=== PATIENT | male | born 1960 | race Caucasian/White ===

== ENCOUNTER 2018-06-13 15:46 | Inpatient (IN) | payer OTHER ==
[~2018-06-13] VITALS: Ht 175.3 cm; Wt 88.2 kg
--- NOTE | 2018-06-13 16:22 | ERD ---
ER Documentation Chief Complaint Chief Complaint gen weakness with high blood sugar 488. no trauma. recent meth use. HPI 57-year-old male presenting with generalized weakness. He was noted to have a blood sugar of 488 in the ambulance prior to arrival. Patient states that he has not been taking his medications for several days. Today when he was trying to get out of bed, he did fall but denies loss of consciousness or head injury. He is denying any focal weakness or numbness. He did use methamphetamines today. ROS All systems reviewed and are negative except as per history of present illness. 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) Hx Cardiac Disorders: Yes (Hypertension) Hx Miscellaneous Medical Probl: Yes (Diabetes) Hx Alcohol Use: No Hx Substance Use: Yes FmHx Family History: No diabetes Physical Exam Vitals Vital Signs Date Temp Pulse Resp B/P (MAP) Pulse Ox O2 O2 Flow FiO2 Time Delivery Rate 06/13/18 109 15 150/90 97 Room Air 18:53 (110) 06/13/18 112 18 170/111 98 Room Air 18:00 (130) 06/13/18 105 18 192/122 98 Room Air 17:30 (145) 06/13/18 100 18 199/125 98 Room Air 16:40 (149) 06/13/18 97.5 97 18 194/128 97 16:00 (150) Physical Exam Const: No acute distress Head: Atraumatic Eyes: Normal Conjunctiva ENT: dry oral mucosa.Normal External Ears, Nose and Mouth. Neck: Full range of motion. No meningismus. Resp: Clear to auscultation bilaterally Cardio: Regular rate and rhythm, no murmurs Abd: Soft, non tender, non distended. Normal bowel sounds Skin: No petechiae or rashes Back: No midline or flank tenderness Ext: Right lower extremity prosthesis with BKA. Left lower extremity without edema. Neur: Awake and alert, oriented, normal speech, no facial asymmetry, strength and sensations intact. Psych: Normal Mood and Affect Result Diagram: 06/13/18 1616 06/13/18 1616 Results 24 hrs Laboratory Tests Test 06/13/18 16:16 06/13/18 17:07 White Blood Count 4.9 10^3/ul Red Blood Count 4.15 10^6/ul Hemoglobin 12.2 g/dl Hematocrit 35.9 % Mean Corpuscular Volume 86.5 fl Mean Corpuscular Hemoglobin 29.4 pg Mean Corpuscular Hemoglobin Concent 34.0 g/dl Red Cell Distribution Width 12.6 % Platelet Count 362 10^3/UL Mean Platelet Volume 10.0 fl Immature Granulocytes % 0.200 % Neutrophils % 67.3 % Lymphocytes % 21.4 % Monocytes % 8.4 % Eosinophils % 1.9 % Basophils % 0.8 % Nucleated Red Blood Cells % 0.0 /100WBC Immature Granulocytes # 0.010 10^3/ul Neutrophils # 3.3 10^3/ul Lymphocytes # 1.0 10^3/ul Monocytes # 0.4 10^3/ul Eosinophils # 0.1 10^3/ul Basophils # 0.0 10^3/ul Nucleated Red Blood Cells # 0.0 10^3/ul Sodium Level 137 mmol/L Potassium Level 4.1 mmol/L Chloride Level 105 mmol/L Carbon Dioxide Level 27 mmol/L Anion Gap 5 Blood Urea Nitrogen 21 mg/dl Creatinine 1.43 mg/dl Est Glomerular Filtrat Rate mL/min 51 mL/min Glucose Level 379 mg/dl Calcium Level 8.8 mg/dl Total Bilirubin 0.3 mg/dl Direct Bilirubin 0.00 mg/dl Indirect Bilirubin 0.3 mg/dl Aspartate Amino Transf (AST/SGOT) 25 IU/L Alanine Aminotransferase (ALT/SGPT) 20 IU/L Alkaline Phosphatase 119 IU/L Troponin I 0.021 ng/ml Total Protein 6.0 g/dl Albumin 2.6 g/dl Globulin 3.40 g/dl Albumin/Globulin Ratio 0.76 Urine Color STRAW Urine Clarity CLEAR Urine pH 7.0 Urine Specific Lester 1.017 Urine Ketones NEGATIVE mg/dL Urine Nitrite NEGATIVE mg/dL Urine Bilirubin NEGATIVE mg/dL Urine Urobilinogen NEGATIVE mg/dL Urine Leukocyte Esterase NEGATIVE Janiya/ul Urine Microscopic RBC 3 /HPF Urine Microscopic WBC 1 /HPF Urine Bacteria FEW /HPF Urine Hemoglobin NEGATIVE mg/dL Urine Glucose 3+ mg/dL Urine Total Protein 3+ mg/dl Urine Opiates Screen Negative Urine Barbiturates Negative Urine Amphetamines Screen POSITIVE Urine Benzodiazepines Screen Negative Urine Cocaine Screen Negative Urine Cannabinoids Positive Current Medications Medications Dose Sig/Norbert Start Time Status Last (Trade) Ordered Route PRN Stop Time Admin Dose Reason Admin Sodium 1,000 ml @ Q1H STAT 06/13/18 DC 06/13/18 Chloride 1,000 mls/hr IV 16:54 16:59 06/13/18 17:53 Nicardipine 30 mg ONCE ONCE 06/13/18 DC 06/13/18 HCl PO 17:00 16:59 (Cardene) 06/13/18 17:01 Hydralazine 10 mg ONCE ONCE 06/13/18 DC 06/13/18 HCl IV 18:00 17:53 (Apresoline) 06/13/18 18:01 Ondansetron 4 mg ER BRIDGE 06/13/18 HCl (Zofran PRN IV 19:00 06/14/18 Inj) NAUSEA/VOMITI 18:59 NG 650 mg ER BRIDGE 06/13/18 Acetaminophen PRN PO 19:00 06/14/18 (Tylenol .MILD PAIN 18:59 Tab) 1-3 OR TEMP Insulin 5 unit ONCE ONCE 06/13/18 DC Aspart SC 19:00 (Novolog 06/13/18 19:01 Insulin Pen) Procedures/MDM EMERGENT LABS AND DIAGNOSTIC STUDIES: Lab Results above were reviewed and interpreted by me. CBC: no anemia or evidence of infection CMP: Elevated BUN and creatinine, consistent with renal failure of unknown chronicity. Hyperglycemic without evidence of acidosis. No evidence of electrolyte abnormality Troponin within normal limits, not indicative of cardiac ischemia UA: no evidence of infection Urine drug screen positive for cannabinoids and amphetamines 12-lead EKG was interpreted by Kuldip Pinzon MD: Normal Sinus Rhythm with ventricular rate of 97 beats per minute Rightward axis Normal intervals No acute ST or T wave changes suggestive of acute ischemia or STEMI. Radiology Results as interpreted by Radiology below were reviewed by Marisa Pinzon MD: Chest x-ray: No acute abnormalities Initial Nursing notes reviewed. Previous Medical Records requested via the Electronic Health Record. EMERGENCY DEPARTMENT COURSE / MEDICAL DECISION MAKING: Patient is presenting with generalized weakness after a fall. No focal deficits on exam. He is mentating normally. Vitals were notable for significantly elevated blood pressure. He was also hyperglycemic without evidence of acidosis. Oral Cardene was given without improvement of his hypertension. He was treated with hydralazine 10 mg IV. Labs were notable for evidence of renal failure of unknown chronicity. With this finding, patient may have hypertensive emergency and will require admission for stabilization. He was also given insulin for his hyperglycemia as well as IV fluids. Critical Care Time: 35 minutes Treatments/Evaluations: Close monitoring and treatment of unstable vital signs, cardiorespiratory, and neurologic status, while maintaining tight balance of fluid, respiratory, and cardiac interventions. This time includes discussing the case with the patient and the patients family. This time does not include all procedures stated elsewhere in this record. This time also includes reviewing old records, labs and radiological studies. This time includes examining and re- examining the patient. Additionally, this time also includes arranging care with admitting and consulting physicians. Accepting Care Team: Current data and ongoing care discussed. Time: Time of admission Primary Provider: Dr. Chani Rojas Diagnosis: Primary Impression: Hypertensive emergency Additional Impressions: Renal failure Renal failure chronicity: unspecified chronicity Qualified Codes: N19 - Unspecified kidney failure Uncontrolled diabetes mellitus Diabetes mellitus type: type 2 Glycemic state: with hyperglycemia Qualified Codes: E11.65 - Type 2 diabetes mellitus with hyperglycemia Condition: Serious SVETA PINZON MD Jun 13, 2018 16:22
[2018-06-13] MEDS ORDERED: MTF1000T PO (16:45)
[2018-06-13] MEDS ORDERED: GLIP5TAB13 PO (16:46)
[2018-06-13] MEDS ORDERED: NOVO7030 SC (16:47)
[2018-06-13] MEDS ORDERED: ATOR20TA38 PO (16:47)
[2018-06-13] MEDS ORDERED: SOD CHLORIDE 0.9% 1,000 ML IV STA (16:54)
[2018-06-13] MEDS ORDERED: NICARDipine HCL 30 MG CAPSULE PO ONE (17:00)
[2018-06-13] MEDS ORDERED: hydrALAzine 20 MG INJ IV ONE (18:00)
[2018-06-13] MEDS ORDERED: ACETAMINOPHEN 325 MG TAB PO PRN ×2 (19:00→20:00)
[2018-06-13] MEDS ORDERED: INSULIN ASPART [NOVOLOG] 3 ML PEN SC ONE (19:00)
[2018-06-13] MEDS ORDERED: ONDANSETRON 4 MG INJ IV PRN (19:00)
[2018-06-13] MEDS ORDERED: ONDANSETRON 4 MG TAB PO PRN (20:00)
[2018-06-13] MEDS ORDERED: CEFTRIAXONE 1 GM/50 ML (PMX) 50 ML IVPB ONE (20:00)
[2018-06-13] MEDS ORDERED: SOD CHLORIDE 0.9% 1,000 ML IV SCH (20:30)
[2018-06-13 21:22] VITALS: PULSE 109
[2018-06-13 21:45] VITALS: Ht 175.3 cm; Wt 88.2 kg
[2018-06-13] MEDS: METOPROLOL 25 MG TAB PO SCH (22:54)
--- NOTE | 2018-06-13 23:19 | HP ---
Date/Time of Note Date/Time of Note DATE: 06/13/18 TIME: 23:19 Assessment/Plan VTE Prophylaxis Pharmacological prophylaxis: heparin Lines/Catheters IV Catheter Type (from Nrsg): Saline Lock Assessment/Plan Assessment/Plan 1. Rule out CVA -will obtain head CT, MRI of the brain, carotid Doppler ultrasound and 2D echo -Aspirin and statin -Check A1c, fasting lipid and TSH in a.m. -PT eval -Frequent neuro checks -Noted that patient symptom could be from hypertensive crisis 2. Hypertensive emergency -Adjust BP meds as needed 3. Insulin-dependent diabetes with hyperglycemia: Insulin while in-house 4. Presumed LELAND vs CKD from hypertensive nephrosclerosis and diabetes -We will hydrate for now -We will decide about renal ultrasound and nephrology consult in a.m. 5. History of right BKA: Supportive care Result Diagram: 06/13/18 1616 06/13/18 1616 Results 24hrs Laboratory Tests Test 06/13/18 16:16 06/13/18 17:07 06/13/18 19:36 06/13/18 20:00 White Blood Count 4.9 Red Blood Count 4.15 L Hemoglobin 12.2 L Hematocrit 35.9 L Mean Corpuscular 86.5 Volume Mean Corpuscular 29.4 Hemoglobin Mean Corpuscular 34.0 Hemoglobin Concent Red Cell 12.6 Distribution Width Platelet Count 362 Mean Platelet Volume 10.0 Immature 0.200 Granulocytes % Neutrophils % 67.3 Lymphocytes % 21.4 Monocytes % 8.4 Eosinophils % 1.9 Basophils % 0.8 Nucleated Red Blood 0.0 Cells % Immature 0.010 Granulocytes # Neutrophils # 3.3 Lymphocytes # 1.0 Monocytes # 0.4 Eosinophils # 0.1 Basophils # 0.0 Nucleated Red Blood 0.0 Cells # Sodium Level 137 Potassium Level 4.1 Chloride Level 105 Carbon Dioxide Level 27 Anion Gap 5 Blood Urea Nitrogen 21 H Creatinine 1.43 H Est Glomerular 51 L Filtrat Rate mL/min Glucose Level 379 H Calcium Level 8.8 Total Bilirubin 0.3 Direct Bilirubin 0.00 Indirect Bilirubin 0.3 Aspartate Amino 25 Transf (AST/SGOT) Alanine 20 Aminotransferase (AL T/SGPT) Alkaline Phosphatase 119 Troponin I 0.021 Total Protein 6.0 L Albumin 2.6 L Globulin 3.40 H Albumin/Globulin 0.76 Ratio Urine Color STRAW Urine Clarity CLEAR Urine pH 7.0 Urine Specific 1.017 [place] Switch Urine Ketones NEGATIVE Urine Nitrite NEGATIVE Urine Bilirubin NEGATIVE Urine Urobilinogen NEGATIVE Urine Leukocyte NEGATIVE Esterase Urine Microscopic 3 RBC Urine Microscopic 1 WBC Urine Bacteria FEW A Urine Hemoglobin NEGATIVE Urine Glucose 3+ H Urine Total Protein 3+ H Urine Opiates Screen Negative Urine Barbiturates Negative Urine Amphetamines POSITIVE Screen Urine Negative Benzodiazepines Screen Urine Cocaine Screen Negative Urine Cannabinoids Positive Bedside Glucose 470 *H 397 H HPI/ROS Admit Date/Time Admit Date/Time Jun 13, 2018 at 18:57 Hx of Present Illness This is a 57-year-old male with a history of hypertension, diabetes, methamphetamine use, right BKA who presented to ER complaining of generalized weakness. He fell when attempting to get out of bed. He has minimal facial dr oop, but he is not aware of it. He denied slurred speech, focal weakness or numbness, chest pain, shortness of breath. Last use of meth was yesterday. The patient does not take his medications When he presented to ER, systolic blood pressure almost in the 200s with diastolic in the 120s. Patient has not been taking his medications. Initial blood glucose when EMS arrived was almost 500, on arrival to the ER he was closed with 400. No sign of DKA. PMH/Family/Social Past Medical History Past Surgical History Past Surgical Hx: other (see hpi) Family History Significant Family History: no pertinent family hx Social History Alcohol Use: other Smoking Status: Unknown if ever smoked Drug Use: other Medications Current Medications Ondansetron HCl (Zofran Tab) 4 mg Q6 PRN PO NAUSEA; Start 06/13/18 at 20:00 Acetaminophen (Tylenol Tab) 650 mg Q4 PRN PO ELEVATED TEMPERATURE; Start 06/13/18 at 20:00 Diagnostic Test (Pha) (Accu-Chek) 1 ea 02 XX ; Start 06/14/18 at 02:00 Metoprolol Tartrate (Lopressor) 25 mg BID PO Last administered on 06/13/18at 22:54; Admin Dose 25 MG; Start 06/13/18 at 21:00 Sodium Chloride 1,000 ml @ 125 mls/hr Q8H IV ; Start 06/13/18 at 20:30; Stop 06/14/18 at 12:29 Ceftriaxone Sodium 50 ml @ 100 mls/hr Q24H IVPB ; Start 06/14/18 at 20:00 Coded Allergies: No Known Allergy (Unverified , 06/13/18) Social History Smoking Status: Never smoker Exam/Review of Systems Vital Signs Vitals Vital Signs Date Temp Pulse Resp B/P (MAP) Pulse Ox O2 O2 Flow FiO2 Time Delivery Rate 06/13/18 109 21:22 06/13/18 18 140/101 98 20:40 (114) 06/13/18 Room Air 20:10 06/13/18 97.5 16:00 Exam Constitutional: other (Patient lying in bed. Somewhat sleepy but fully arousable and answering question appropriately although slowly) Head: normocephalic, atraumatic Eyes: PERRL ENMT: other (Slight facial droop noted) Respiratory: other Cardiovascular: regular rate and rhythm (Slightly decreased breath sounds at the bases bilaterally) Gastrointestinal: soft Extremities: normal pulses JESUS KUNZ MD Jun 13, 2018 23:19
[2018-06-13 23:43] VITALS: BP 157/89; PULSE 81; RESP 17
[2018-06-14] VITALS (9 sets, daily range): BP systolic 156–173; BP diastolic 94–109; PULSE 75–95; RESP 18–20
[2018-06-14] MEDS ORDERED: ACCU-CHEK XX SCH (02:00)
[2018-06-14] MEDS ORDERED: INSULIN GLARGINE [LANTus] (100 UNITS/ML) SYG SC ONE (06:00)
[2018-06-14] MEDS: METOPROLOL 25 MG TAB PO SCH (08:18)
--- NOTE | 2018-06-14 08:46 | CONS ---
DATE OF ADMISSION: 06/13/2018 DATE OF CONSULTATION: 06/14/2018 TYPE OF CONSULTATION: Nephrology. REASON FOR CONSULTATION: Acute kidney injury. PHYSICIAN REQUESTING CONSULT: Dr. Kunz. HISTORY OF PRESENT ILLNESS: This is a 57-year-old male with a past medical history of hypertension, diabetes, history of methamphetamine use, history of right BKA, who presents to [facility] Emergency Room with generalized weakness. The patient stated he was trying to get out of the bed when he noted some facial droop and weakness. The patient does admit to using methamphetamine y esterday. The patient was subsequently taken to the Emergency Room where he was noted to have systol ic pressures greater than 200. The patient in the Emergency Room had laboratory data drawn, which sh owed a white count 6.8, BUN 24, creatinine 1.42. The patient had a chest x-ray which showed no acute disease. In the Emergency Room, the patient was given antibiotic therapy and antihypertensive medic ations and admitted to telemetry for evaluation. In terms of patient's renal history, the patient denies any prior history of kidney disease or chroni c kidney disease. Denies any hemoptysis, hematemesis or hematochezia. PAST MEDICAL HISTORY: As above, history of methamphetamine use, history of hypertension, history of diabetes. PAST SURGICAL HISTORY: History of BKA. FAMILY HISTORY: No family history of kidney disease. SOCIAL HISTORY: Does not drink, smoke, history positive for drug use. MEDICATIONS: The patient's medications have been reviewed. REVIEW OF SYSTEMS: A 14-point review of systems conducted. Pertinent positives stated in HPI, other melendrez negative. PHYSICAL EXAMINATION: VITAL SIGNS: Blood pressure is 173/101, respiration 18, pulse 77, temperature 98.7. HEENT: Head is normocephalic. NECK: Supple. HEART: Regular rate. LUNGS: Show diminished breath sounds at the base. ABDOMEN: Soft, nontender to palpation. No rebound, guarding. EXTREMITIES: Negative for clubbing, cyanosis, no edema, positive right below-knee amputation. DERMATOLOGIC: No rashes. MUSCULOSKELETAL: No joint effusions. NEUROLOGIC: Limited exam, but no obvious focal deficits. The patient's medications have been review ed. LABORATORY DATA: Shows urine toxicity positive for methamphetamine. Sodium 138, BUN 21, creatinine 1.42. White count 6.8, hemoglobin 9.1, platelet count is 346. Urinalysis shows +3 proteinuria, no s ignificant pyuria, hematuria. ASSESSMENT AND PLAN: This is a 57-year-old male who presents with: 1. Nonoliguric acute kidney injury with unknown baseline creatinine. Etiology of acute kidney injur y is likely multifactorial secondary to methamphetamine use, nephrotoxicity, hemodynamics. The patie nt's initial urinalysis shows no evidence of active sediment, positive proteinuria. Plan at this poi nt is to quantify the patient's proteinuria. Will check a renal ultrasound to evaluate renal parench yma to rule out obstruction. 2. Recommend to improve blood pressure; however, monitor closely to avoid hemodynamic fluctuations. Would defer any VASYL inhibitor or ARB at this time and monitor closely. Otherwise, continue supporti ve care, renally dose all meds, avoid nephrotoxins. 3. Hypertension. Etiology is in part due to recent methamphetamine use. Plan is to continue suppor tive care. Will discontinue IV fluids. Continue current blood pressure regimen. Avoid significant hemodynamic fluctuations. 4. Anemia. Continue to monitor hemoglobin and hematocrit levels. 5. Mineral bone disorder, monitor calcium and phosphorus levels. 6. Diabetes. Continue current insulin regimen. 7. Weakness. Patient is being ruled out for CVA. Follow up CT scan and MRI of the brain. Continue neuro checks. 8. History of a right BKA. Continue to monitor. Thank you, Dr. Kunz for this interesting consult. It will be a pleasure to follow patient with you t hroughout the hospital course. Dictated By: ROS GARCIA DO NR/NTS Conf#: [id number] DID#: [id number] CC: JESUS KUNZ MD;*EndCC*
[2018-06-14] MEDS: INSULIN ASPART [NOVOLOG] 3 ML PEN SC SCH ×3 (08:52→17:46)
[2018-06-14] MEDS ORDERED: ASPIRIN (EC) 81 MG TAB PO SCH (09:00)
[2018-06-14] MEDS ORDERED: CEFTRIAXONE 1 GM INJ IM SCH (09:00)
--- NOTE | 2018-06-14 14:11 | CONS ---
Assessment/Plan Assessment/Plan Hospital Course 57 yo M with hx of recent methamphetamine use, HTN, DM who presents for evaluation of generalized weakness. He is noted to have facial weakness... for which neurology is consulted. The clinical picture is most ominously concerning for minor stroke. CTH is unremarkable; echo is unrevealing. UDS + methamphetamine, marijuana LDL 208 P: Await MRI brain without contrast for further characterization ASA/Lipitor pending the above PT/OT/ST as tolerated Other medical management per primary Will follow clinically, to recommend neurologic studies, as necessary Consultation Date/Type/Reason Admit Date/Time Jun 13, 2018 at 18:57 Type of Consult Neurology Reason for Consultation eval for stroke Requesting Provider: MALCOM GODDARD Date/Time of Note DATE: 06/14/18 TIME: 14:11 Hx of Present Illness 57 yo M with hx of recent meth use, HTN, DM and other comorbidities who presented to the ED with c/o generalized weakness. The pt stated that he fell while trying to get out of bed. He stated that he didn't put his R leg prosthesis on correctly, so when he attempted to stand, he fell. States he hit his head. Also reports recent methamphetamine use earlier that day. It is elsewhere noted: Hx of Present Illness This is a 57-year-old male with a history of hypertension, diabetes, methamphetamine use, right BKA who presented to ER complaining of generalized weakness. He fell when attempting to get out of bed. He has minimal facial dr oop, but he is not aware of it. He denied slurred speech, focal weakness or numbness, chest pain, shortness of breath. Last use of meth was yesterday. The patient does not take his medications When he presented to ER, systolic blood pressure almost in the 200s with diastolic in the 120s. Patient has not been taking his medications. Initial blood glucose when EMS arrived was almost 500, on arrival to the ER he was closed with 400. No sign of DKA. negative unless noted otherwise in HPI Exam/Review of Systems Exam Vitals Vital Signs Date Temp Pulse Resp B/P (MAP) Pulse Ox O2 O2 Flow FiO2 Time Delivery Rate 06/14/18 75 12:09 06/14/18 98.5 20 156/98 95 Room Air 11:07 (117) Intake and Output 06/13/18 06/13/18 06/14/18 1515:00 23:00 07:00 IntakeIntake Total 450 ml OutputOutput Total 1000 ml BalanceBalance -550 ml Exam PE: Gen Appearance: No Apparent Distress HEENT: Normocephalic Cardiovascular: Regular rate Lungs: Clear bilaterally Abdomen: Soft Extremities: Dry NE: The patient was alert and oriented.. Language was slightly dysarthric. Fund of knowledge was normal. Pupils were equal and reactive to light. There was no afferent pupillary defect. Visual guardado were normal. Funduscopic examination was limited. Extra-ocular movements were full. Ptosis was absent. There was no nystagmus. Facial sensation was normal. Face was asymmetric with symmetric activation. Hearing was intact. Palate movements were normal. Neck strength was normal. There was normal tongue bulk and speed of movement. Tone was normal. Muscle bulk was normal. I did not see fasciculations. Arms and legs were weak on the L. Sensation to light touch was normal. Vibration sensation was normal. Temperature and pinprick sensation was normal. Rapid alternating movements were normal. There was no dysmetria. There was no intention tremor. Gait was deferred due to bedrest. Arm and leg reflexes were 2+ and symmetric. Cuenca's sign was absent. Plantar responses were flexor. Results Result Diagram: 06/14/18 0529 06/14/18 0529 Results 24hrs Laboratory Tests Test 06/13/18 16:16 06/13/18 17:07 06/13/18 19:36 06/13/18 20:00 White Blood Count 4.9 Red Blood Count 4.15 L Hemoglobin 12.2 L Hematocrit 35.9 L Mean Corpuscular 86.5 Volume Mean Corpuscular 29.4 Hemoglobin Mean Corpuscular 34.0 Hemoglobin Concent Red Cell 12.6 Distribution Width Platelet Count 362 Mean Platelet Volume 10.0 Immature 0.200 Granulocytes % Neutrophils % 67.3 Lymphocytes % 21.4 Monocytes % 8.4 Eosinophils % 1.9 Basophils % 0.8 Nucleated Red Blood 0.0 Cells % Immature 0.010 Granulocytes # Neutrophils # 3.3 Lymphocytes # 1.0 Monocytes # 0.4 Eosinophils # 0.1 Basophils # 0.0 Nucleated Red Blood 0.0 Cells # Sodium Level 137 Potassium Level 4.1 Chloride Level 105 Carbon Dioxide Level 27 Anion Gap 5 Blood Urea Nitrogen 21 H Creatinine 1.43 H Est Glomerular 51 L Filtrat Rate mL/min Glucose Level 379 H Calcium Level 8.8 Total Bilirubin 0.3 Direct Bilirubin 0.00 Indirect Bilirubin 0.3 Aspartate Amino 25 Transf (AST/SGOT) Alanine 20 Aminotransferase (AL T/SGPT) Alkaline Phosphatase 119 Troponin I 0.021 Total Protein 6.0 L Albumin 2.6 L Globulin 3.40 H Albumin/Globulin 0.76 Ratio Urine Color STRAW Urine Clarity CLEAR Urine pH 7.0 Urine Specific 1.017 Floweree Urine Ketones NEGATIVE Urine Nitrite NEGATIVE Urine Bilirubin NEGATIVE Urine Urobilinogen NEGATIVE Urine Leukocyte NEGATIVE Esterase Urine Microscopic 3 RBC Urine Microscopic 1 WBC Urine Bacteria FEW A Urine Hemoglobin NEGATIVE Urine Glucose 3+ H Urine Total Protein 3+ H Urine Opiates Screen Negative Urine Barbiturates Negative Urine Amphetamines POSITIVE Screen Urine Negative Benzodiazepines Screen Urine Cocaine Screen Negative Urine Cannabinoids Positive Bedside Glucose 470 *H 397 H Test 06/14/18 00:41 06/14/18 05:29 06/14/18 08:03 06/14/18 11:50 Troponin I 0.028 0.034 White Blood Count 6.8 # Red Blood Count 3.80 L Hemoglobin 11.1 L Hematocrit 33.1 L Mean Corpuscular 87.1 Volume Mean Corpuscular 29.2 Hemoglobin Mean Corpuscular 33.5 Hemoglobin Concent Red Cell 13.0 Distribution Width Platelet Count 346 Mean Platelet Volume 10.6 H Immature 0.100 Granulocytes % Neutrophils % 68.7 Lymphocytes % 18.6 Monocytes % 10.4 Eosinophils % 1.5 Basophils % 0.7 Nucleated Red Blood 0.0 Cells % Immature 0.010 Granulocytes # Neutrophils # 4.7 Lymphocytes # 1.3 Monocytes # 0.7 Eosinophils # 0.1 Basophils # 0.1 Nucleated Red Blood 0.0 Cells # Sodium Level 138 Potassium Level 3.9 Chloride Level 108 Carbon Dioxide Level 24 Anion Gap 6 Blood Urea Nitrogen 21 H Creatinine 1.42 H Est Glomerular 52 L Filtrat Rate mL/min Glucose Level 303 H Hemoglobin A1c Calcium Level 8.3 L Triglycerides Level 161 H Cholesterol Level 305 H LDL Cholesterol, 208 Calculated HDL Cholesterol 65 Cholesterol/HDL 4.6 Ratio Bedside Glucose 289 H 287 H Test 06/14/18 12:10 Troponin I 0.019 Medications Medication Current Medications Ondansetron HCl (Zofran Tab) 4 mg Q6 PRN PO NAUSEA; Start 06/13/18 at 20:00 Acetaminophen (Tylenol Tab) 650 mg Q4 PRN PO ELEVATED TEMPERATURE; Start 06/13/18 at 20:00 Diagnostic Test (Pha) (Accu-Chek) 1 ea 02 XX ; Start 06/14/18 at 02:00 Metoprolol Tartrate (Lopressor) 25 mg BID PO Last administered on 06/14/18at 08:18; Admin Dose 25 MG; Start 06/13/18 at 21:00 Ceftriaxone Sodium 50 ml @ 100 mls/hr Q24H IVPB ; Start 06/14/18 at 20:00 Influenza Virus Vaccine Quadrival (Fluzone) 0.5 ml ONCE ONCE IM* ; Start 06/15/18 at 10:00; Stop 06/15/18 at 10:01 Insulin Glargine (Lantus) 15 units DAILY@2000 SC ; Start 06/14/18 at 20:00 Insulin Aspart (Novolog Insulin Pen) 6 unit WITH MEALS SC Last administered on 06/14/18at 11:56; Admin Dose 6 UNIT; Start 06/14/18 at 08:00 Atorvastatin Calcium (Lipitor) 20 mg QHS PO ; Start 06/14/18 at 21:00 Aspirin (Halfprin) 81 mg DAILY PO Last administered on 06/14/18at 08:17; Admin Dose 81 MG; Start 06/14/18 at 09:00 Past Medical History reviewed Home Meds Active Scripts Amlodipine Besylate* (Norvasc*) 5 Mg Tablet, 5 MG PO DAILY, #60 TAB Prov:MALCMO GODDARD 06/14/18 Reported Medications Atorvastatin Calcium* (Atorvastatin Calcium*) 20 Mg Tablet, 20 MG PO QHS, #30 TAB 06/13/18 Insulin Isophan/Regular (Humulin 70/30) 100 Units/Ml Susp, 20 UNIT SC BID, EA 06/13/18 Glipizide* (Glipizide*) 5 Mg Tablet, 5 MG PO BID, TAB 06/13/18 Metformin* (Glucophage*) 1,000 Mg Tablet, 1000 MG PO BID, #60 TAB 06/13/18 Medications Current Medications Ondansetron HCl (Zofran Tab) 4 mg Q6 PRN PO NAUSEA; Start 06/13/18 at 20:00 Acetaminophen (Tylenol Tab) 650 mg Q4 PRN PO ELEVATED TEMPERATURE; Start 06/13/18 at 20:00 Diagnostic Test (Pha) (Accu-Chek) 1 ea 02 XX ; Start 06/14/18 at 02:00 Metoprolol Tartrate (Lopressor) 25 mg BID PO Last administered on 06/14/18at 08:18; Admin Dose 25 MG; Start 06/13/18 at 21:00 Ceftriaxone Sodium 50 ml @ 100 mls/hr Q24H IVPB ; Start 06/14/18 at 20:00 Influenza Virus Vaccine Quadrival (Fluzone) 0.5 ml ONCE ONCE IM* ; Start 06/15/18 at 10:00; Stop 06/15/18 at 10:01 Insulin Glargine (Lantus) 15 units DAILY@2000 SC ; Start 06/14/18 at 20:00 Insulin Aspart (Novolog Insulin Pen) 6 unit WITH MEALS SC Last administered on 06/14/18at 11:56; Admin Dose 6 UNIT; Start 06/14/18 at 08:00 Atorvastatin Calcium (Lipitor) 20 mg QHS PO ; Start 06/14/18 at 21:00 Aspirin (Halfprin) 81 mg DAILY PO Last administered on 06/14/18at 08:17; Admin Do se 81 MG; Start 06/14/18 at 09:00 Allergies: Coded Allergies: No Known Allergy (Unverified , 06/13/18) Past Surgical History reviewed Social History reviewed Smoking Status: Never smoker TAMIKO MARTINEZ NP Jun 14, 2018 14:11
--- NOTE | 2018-06-14 14:55 | RADRPT ---
Echocardiogram Report Patient Name: ZACH CHOWDHURY MAGDELENOPatient ID: [id number] : 1960 (57y 11m)Study Date: 06/14/2018 7:21:33 AM Gender: MAccession #: [id number] Tech: JerKen Carlson [facility] Location: [facility] Ref.Physician: JESUS KUNZ Height(Cm): BSA: Weight(Kg): Quality: AdequateAccount #: Procedures: Echocardiographic Report: Transthoracic echocardiogram with complete 2D, M-Mode, and doppler examination. Indications: Strokelike symptoms. Measurements: 2D/M Mode Doppler Measurement Value Normal Range Measurement Value Normal Range LVIDd 2D 3.9 [ 4.2 - 5.8 ] cm AV Peak Ivan 1.3 [ 100.0 - 170.0 ] cm/sec LVIDs 2D 2.6 [ 2.5 - 4.0 ] cm AV Peak PG 7.0 [ 2.0 - 9.0 ] mmHg LVPWd 2D 1.6 [ 0.6 - 1.0 ] cm LVOT Peak Ivan 0.9 [ 70.0 - 110.0 ] cm/sec IVSd 2D 1.6 [ 0.6 - 1.0 ] cm LVOT Peak PG 3.0 [ 2.0 - 6.0 ] mmHg AoR Diam 2D 3.2 [ 2.6 - 3.4 ] cm MV E Peak Ivan 0.6 [ 60.0 - 130.0 ] cm/sec EDV 2D 65.1 [ 62.0 - 150.0 ] ml MV A Peak Ivan 0.8 [ 100.0 - 120.0 ] cm/sec ESV 2D 25.3 [ 21.0 - 61.0 ] ml MV E/A 0.7 [ 0.8 - 1.5 ] ratio EF 2D 61.1 [ 52.0 - 72.0 ] percent MV Decel Time 130 [ 104 - 258 ] msec LA Dimen 2D 3.5 [ 3.0 - 4.0 ] cm Lat E` Ivan 0.1 [ 10.0 - 15.0 ] cm/sec Lateral E/E` 9.7 [ 1.0 - 2.0 ] ratio MV E/A 0.7 [ 0.8 - 1.5 ] ratio Findings: Left Ventricle: Normal left ventricular cavity size. Moderate concentric left ventricular hypertrophy. Ejection fraction is visually estimated at 60 %. Tissue Doppler/Mitral Doppler indices are consistent with impaired relaxation (Stage I diastolic dysfunction). Right Ventricle: Normal right ventricular size. Normal right ventricular systolic function. Left Atrium: The left atrium is normal in size. Right Atrium: The right atrium is normal in size. Mitral Valve: Normal appearance and function of the mitral valve with trace physiologic regurgitation. Aortic Valve: No hemodynamically significant aortic stenosis by doppler. Aortic cusps appear mildly calcified. Trace aortic valve regurgitation. Tricuspid Valve: Normal appearance of the tricuspid valve. Unable to obtain RVSP due to minimal presence of tricuspid regurgitation. Pulmonic Valve: Normal pulmonic valve appearance. Pericardium: Normal pericardium with no significant pericardial effusion. Aorta: Normal aortic root. IVC: Normal size and normal respiratory collapse consistent with normal right atrial pressure. Conclusions: Normal left ventricular cavity size. Moderate concentric left ventricular hypertrophy. Ejection fraction is visually estimated at 60 %. Tissue Doppler/Mitral Doppler indices are consistent with impaired relaxation (Stage I diastolic dysfunction). Normal appearance and function of the mitral valve with trace physiologic regurgitation. No hemodynamically significant aortic stenosis by doppler. Aortic cusps appear mildly calcified. Trace aortic valve regurgitation. Normal appearance of the tricuspid valve. Unable to obtain RVSP due to minimal presence of tricuspid regurgitation. Electronically Signed By: Ruben Forte 2018-06-14 14:53:53 PST
[2018-06-14] MEDS ORDERED: AMLO5TAB4 PO (16:28)
--- NOTE | 2018-06-14 16:29 | PDOCDIS ---
Discharge Instructions CONDITION [id number] Patient Condition: [id number] Good HOME CARE INSTRUCTIONS: [id number] Special Diet: [id number] DIABETIC ACTIVITY: [id number] Activity Restrictions: [id number] No Restrictions FOLLOW UP/APPOINTMENTS Follow-up Plan FOLLOW UP WITH YOUR PCP IN 1-2 WEEKS MALCOM GODDARD Jun 14, 2018 16:29
[2018-06-14] MEDS ORDERED: AMLODIPINE 5 MG TAB PO ONE (16:30)
[2018-06-14] MEDS ORDERED: INSULIN GLARGINE [LANTus] (100 UNITS/ML) SYG SC SCH (20:00)
[2018-06-14] MEDS ORDERED: CEFTRIAXONE 1 GM/NS 50 ML IVPB SCH (20:00)
[2018-06-14] MEDS ORDERED: ATORVASTATIN 20 MG TAB PO SCH (21:00)
--- NOTE | 2018-06-16 19:52 | DS ---
Date/Time of Note Date/Time of Note DATE: 06/16/18 TIME: 19:45 Discharge Summary Admission/Discharge Info Admit Date/Time Jun 13, 2018 at 18:57 Discharge Date/Time Jun 14, 2018 at 17:20 Discharge Diagnosis 1. 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 Several additional cortical infarcts scattered throughout both frontal and parietal lobes measuring 1 - 3 mm. Subacute blood degradation products are present associated with the left thalamic infarction Patient states that he feels fine and prefers to be discharged home rather than to facility PT eval appreciated Continue home statin, no aspirin secondary to small hemorrhages DC with Norvasc for BP control 2. Hypertensive emergency [place] to meth abuse DC with Norvasc 3. Insulin-dependent diabetes with hyperglycemia Continue home regimen 4. Presumed CKD from hypertensive nephrosclerosis and diabetes 5. History of right BKA: Supportive care Patient Condition: Good Hospital Course Patient is a 57-year-old male with a history of diabetes, hypertension, meth abuse. Patient does report recent meth abuse and toxicology is positive. Patient presented with a complaint of generalized weakness, in the ER patient was found to be hypertensive, CT head showed no acute infarcts but MRI did show recent left thalamic infarct involving the right caudate nucleus and right coronary radiata with additional cortical infarcts scattered throughout both frontal and parietal lobes, subacute blood decoration products were also present within the left thalamic infarction. Patient was seen by PT, patient did not want to be placed in a facility and stated that he was back to his baseline and preferred to be discharged home. On day of discharge patient's vitals, labs and physical exam are stable. Home Meds Active Scripts Amlodipine Besylate* (Norvasc*) 5 Mg Tablet, 5 MG PO DAILY, #60 TAB Prov:MALCOM GODDARD 06/14/18 Reported Medications Atorvastatin Calcium* (Atorvastatin Calcium*) 20 Mg Tablet, 20 MG PO QHS, #30 TAB 06/13/18 Insulin Isophan/Regular (Humulin 70/30) 100 Units/Ml Susp, 20 UNIT SC BID, EA 06/13/18 Glipizide* (Glipizide*) 5 Mg Tablet, 5 MG PO BID, TAB 06/13/18 Metformin* (Glucophage*) 1,000 Mg Tablet, 1000 MG PO BID, #60 TAB 06/13/18 Follow-up Plan FOLLOW UP WITH YOUR PCP IN 1-2 WEEKS Primary Care Provider Care Physician No Primary Time spent on discharge: > 30 minutes MALCOM GODDARD Jun 16, 2018 19:52
== END 2018-06-14 17:20 | disposition home or self-care (01) | DRG 65 ==
LOC: E/R 15:46 → TEL 18:57 → 6WM 21:16
PROVIDERS: ADMIT Internal Medicine; ATTEND Internal Medicine
DX: I63.9 Cerebral infarction, unspecified (principal); I16.1 Hypertensive emergency; N17.9 Acute kidney failure, unspecified; G81.94 Hemiplegia, unspecified affecting left nondominant side; E11.22 Type 2 diabetes mellitus with diabetic chronic kidney disease; E11.65 Type 2 diabetes mellitus with hyperglycemia; I12.9 Hypertensive chronic kidney disease with stage 1 through stage 4 chronic kidney disease, or unspecified chronic kidney disease; N18.9 Chronic kidney disease, unspecified; F15.10 Other stimulant abuse, uncomplicated; D64.9 Anemia, unspecified; R29.810 Facial weakness; R47.1 Dysarthria and anarthria; Z79.4 Long term (current) use of insulin; Z91.14 Patient's other noncompliance with medication regimen; Z89.511 Acquired absence of right leg below knee
CPT/HCPCS: 36415; 70450; 70551; 71045; 76775; 80048; 80053; 80061; 80307; 81001; 82962; 83036; 84484; 85025; 93005; 93306; 93880; 96374; 97163; J0360; J0696; J1815; J7030